=== PATIENT | male | born 2000 | race Two or more races ===

== ENCOUNTER 2020-08-04 21:38 | Emergency (ER) | payer MEDICAID, OTHER ==
[~2020-08-04] VITALS: Ht 177.8 cm; Wt 72.6 kg
[2020-08-04 22:00] VITALS: BP 125/75
== END 2020-08-05 06:35 | disposition home or self-care (01) ==
LOC: ER 21:40
DX: Z02.89 Encounter for other administrative examinations (principal); Z59.0 Homelessness